=== PATIENT | male | born 1975 | race Caucasian/White ===

== ENCOUNTER 2016-06-09 06:25 | Observation (INO) | payer OTHER ==
[2016-06-09] MEDS ORDERED: SODIUM CHLORIDE 0.9% 1,000 ML IV STA (07:30)
[2016-06-09] MEDS ORDERED: ONDANSETRON 4 MG/2 ML VIAL IVP STA (07:30)
[2016-06-09] MEDS ORDERED: SODIUM CHLORIDE 0.9% 2,000 ML IV STA (07:30)
[2016-06-09 08:01] LABS: Basophils % (A) 0 %; CH 27.3; CHCM 33.3; Eosinophils # (A) 0.1 k/uL (0-0.7); Eosinophils % (A) 1 %; HCT 50.3 % (39.0-53.0); HDW 2.77; HGB 16.8 gm/dL (13.0-17.5); Luc # (Auto) 0.33; Luc % (Auto) 3; Lymphocytes # (A) 0.4 k/uL (1.0-4.8); Lymphocytes % (A) 3 %; MCH 27.5 pg (25.0-35.0); MCHC 33.5 g/dL (31.0-37.0); MCV 82.2 fL (80.0-100.0); Mean Platelet Volume 7.6; Monocytes # (A) 0.5 k/uL (0-1.0); Monocytes % (A) 4 %; Neutrophils % (A) 90 %; RBC 6.12 m/uL (4.30-5.90); RDW 13.8 % (11.5-15.5); WBC 12.2 k/uL (3.8-10.6); WBC (Perox) 12.61
[2016-06-09 08:06] LABS: ALT 43 U/L (21-72); AST 29 U/L (17-59); Alkaline Phosphatase 87 U/L (38-126); Amylase 55 U/L (30-110); Anion Gap 15 mmol/L; Blood Urea Nitrogen 23 mg/dL (9-20); Calcium 9.2 mg/dL (8.4-10.2); Carbon Dioxide 20 mmol/L (22-30); Chloride 108 mmol/L (98-107); Glucose 121 mg/dL (74-99); Non-African American GFR(MDRD) >60 (>60 ml/min/1.73 sqM); Potassium 5.1 mmol/L (3.5-5.1); Sodium 143 mmol/L (137-145); Total Bilirubin 1.5 mg/dL (0.2-1.3); Total Protein 7.4 g/dL (6.3-8.2)
--- NOTE | 2016-06-09 08:09 | XR ---
EXAMINATION TYPE: XR abdomen acute w cxr DATE OF EXAM ORDERED: 06/09/2016 8:01 AM HISTORY: Abd pain. COMPARISON: None. FINDINGS: The heart is enlarged. The lungs are clear. Pleural spaces are clear. Within the abdomen, the abdominal gas pattern is normal. There is no evidence of obstruction or free air. No unusual calcifications are seen. IMPRESSION: 1. CARDIOMEGALY. 2. NO ACUTE INTRA-ABDOMINAL ABNORMALITY.
--- NOTE | 2016-06-09 08:25 | ED ---
Nausea/Vomiting/Diarrhea HPI - General Chief complaint: Nausea/Vomiting/Diarrhea Stated complaint: Syncope Time Seen by Provider: 06/09/16 07:24 Source: patient Mode of arrival: EMS Limitations: no limitations - History of Present Illness Initial comments: This 40-year-old white male presents with the complaint of nausea vomiting diarrhea. He apparently had 10 episodes of vomiting and 2 episodes of diarrhea. The onset occurred last night at 11 PM. He feels fatigued but denies any actual fever. He will have occasional abdominal pain when he has diarrhea but he denies any current abdominal pain. He also had 4 syncopal episodes thus far. He denies any known sick contacts. No other complaints or modifying factors. - Related Data Allergies Allergy/AdvReac Type Severity Reaction Status Date / Time Iodine and Iodide Containing Allergy Rash/Hives Verified 06/09/16 06:42 Produc Penicillins Allergy Unknown Verified 06/09/16 06:42 Review of Systems ROS Statement: Those systems with pertinent positive or pertinent negative responses have been documented in the HPI. ROS Other: All systems not noted in ROS Statement are negative. Past Medical History Past Medical History: CVA/TIA Additional Past Medical History / Comment(s): BRAIN TUMOR History of Any Multi-Drug Resistant Organisms: None Reported Additional Past Surgical History / Comment(s): BRAIN SURGERY Past Psychological History: No Psychological Hx Reported Smoking Status: Never smoker Past Alcohol Use History: None Reported Past Drug Use History: None Reported General Exam - General Exam Comments Initial Comments: GENERAL: The patient is well nourished and well hydrated. VITAL SIGNS: Heart rate, blood pressure, respiratory rate reviewed as recorded in nurse's notes. EYES: Pupils are round and reactive. Extraocular movements are intact. No conjunctival / lid redness or swelling. ENT: No external evidence of injury, swelling, or ecchymosis. Airway is patent. Throat is clear. NECK: Nontender. No swelling or evidence of injury. No subcutaneous emphysema. Trachea is midline. No thyroid mass. HEART: Regular rate and rhythm. Good peripheral pulses. LUNGS/CHEST: Breath sounds clear and equal bilaterally. No rales, rhonchi, or wheezes. No ecchymosis, subcutaneous emphysema, or tenderness. ABDOMEN: Abdomen soft without tenderness. No palpable masses or organomegaly. No peritoneal signs. No abdominal wall swelling or ecchymosis. EXTREMITIES: No extremity tenderness. Normal muscle tone and function. No thoracolumbar tenderness. NEUROLOGIC: Sensation is grossly intact. Cranial nerve exam reveals face is symmetrical, tongue is midline, speech is clear. SKIN: No abrasions or ecchymosis is noted. No induration or masses noted. PSYCHIATRIC: Alert and oriented. Appropriate behavior and judgment. Limitations: no limitations Course Vital Signs 06/09/16 06:33 Temperature 97.1 F L Pulse Rate 110 H Respiratory 18 Rate Blood Pressure 181/86 O2 Sat by Pulse 93 L Oximetry Medical Decision Making - Medical Decision Making The patient was seen and examined. All diagnostics were reviewed. An IV was started and he was thoroughly hydrated. He also received some Zofran further nausea. EKG was completed and shows a sinus tachycardia with a heart rate of 101. There is no acute ST-T wave changes identified. The GA interval is 140, QRS duration is 84, and QTC intervals 435. The acute abdominal series did not show any acute processes. The laboratory does show a decreased CO2 consistent with dehydration. He has mild leukocytosis. Overall, it is felt as though he does have gastroenteritis with dehydration. He also had 4 syncopal episodes. It is felt that he benefit from admission. Case is discussed with Dr. Mercado and he is agreeable to admission. The patient is admitted to the general medical floor with telemetry. - Lab Data Result diagrams: 06/09/16 06:55 06/09/16 06:55 Lab Results 06/09/16 06/09/16 Range/Units 06:55 06:55 WBC 12.2 H (3.8-10.6) k/uL RBC 6.12 H (4.30-5.90) m/uL Hgb 16.8 (13.0-17.5) gm/dL Hct 50.3 (39.0-53.0) % MCV 82.2 (80.0-100.0) fL MCH 27.5 (25.0-35.0) pg MCHC 33.5 (31.0-37.0) g/dL RDW 13.8 (11.5-15.5) % Plt Count 311 (150-450) k/uL Neutrophils % 90 % Lymphocytes % 3 % Monocytes % 4 % Eosinophils % 1 % Basophils % 0 % Neutrophils # 11.0 H (1.3-7.7) k/uL Lymphocytes # 0.4 L (1.0-4.8) k/uL Monocytes # 0.5 (0-1.0) k/uL Eosinophils # 0.1 (0-0.7) k/uL Basophils # 0.0 (0-0.2) k/uL Sodium 143 (137-145) mmol/L Potassium 5.1 (3.5-5.1) mmol/L Chloride 108 H (98-107) mmol/L Carbon Dioxide 20 L (22-30) mmol/L Anion Gap 15 mmol/L BUN 23 H (9-20) mg/dL Creatinine 0.99 (0.66-1.25) mg/dL Est GFR (MDRD) Af Amer >60 (>60 ml/min/1.73 sqM) Est GFR (MDRD) Non-Af >60 (>60 ml/min/1.73 sqM) Glucose 121 H (74-99) mg/dL Calcium 9.2 (8.4-10.2) mg/dL Total Bilirubin 1.5 H (0.2-1.3) mg/dL AST 29 (17-59) U/L ALT 43 (21-72) U/L Alkaline Phosphatase 87 (38-126) U/L Total Protein 7.4 (6.3-8.2) g/dL Albumin 4.1 (3.5-5.0) g/dL Amylase 55 (30-110) U/L Lipase 174 (23-300) U/L Disposition Clinical Impression: Gastroenteritis, Dehydration, Abdominal pain, Syncope, Nausea vomiting and diarrhea Disposition: ADMITTED IP TO THIS [facility] Condition: Fair Time of Disposition: : Decision Date: 06/09/16 Decision Time: :
[2016-06-09] MEDS ORDERED: ONDANSETRON 4 MG/2 ML VIAL IVP PRN (09:29)
[2016-06-09] MEDS ORDERED: NALOXONE 0.4 MG/ML 1 ML VIAL IV PRN (09:29)
[2016-06-09 09:32] LABS: Appearance,Urine Cloudy (Clear); Bilirubin,Urine 1+ (Negative); Glucose,Urine (UA) Negative (Negative); Ketones,Urine Negative (Negative); Leukocyte Esterase,Urine Negative (Negative); Mucus,Urine Many /hpf; Nitrite,Urine Negative (Negative); PH, Urine 5.5 (5.0-8.0); Particle Count 12770; Protein,Urine 1+ (Negative); RBC,Urine 1 /hpf (0-5); Specific Gravity,Urine 1.027 (1.001-1.035); Squamous Epithelial Cell,Urine <1 /hpf (0-4); UA Billing (MACRO vs. MICRO) MICRO; Urobilinogen,Urine <2.0 mg/dL (<2.0); WBC,Urine 5 /hpf (0-5)
[2016-06-09] MEDS: PANTOPRAZOLE 40 MG/10 ML VIAL IV SCH (10:35)
[2016-06-09 10:50] VITALS: BMI 42.5
--- NOTE | 2016-06-09 12:35 | P.HPIM ---
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 with a previous medical history significant for hypertension and hypertensive cardio vascular disease, history of ALLERGIC rhinitis, history of brain tumor that was diagnosed back in 1981 when he was 6-year-old at that time he underwent craniotomy by neurosurgery at [facility], patient stated that he was in his usual state of health about yesterday when he ate 2 baked potatoes as well as 3 fish patties that had lobe of increased on it and he went to bed and woke up at around 11:00 in the evening with abdominal pain associated with nausea and not feeling well and he went back to bed at that time. Woke up at around 3: 00 in the morning and he was having severe diarrhea and at the same time he vomited about 6 times and he had a syncopal episode, subsequently the patient the went back to bed at wake up at around 5:00 in the morning had another syncopal episode, his mom cold 911 and the patient was brought into the emergency department at [facility] where he had another syncopal episode his blood pressure was quite low and the patient appeared quite dehydrated and the patient was given 2 L of normal saline and he was at admitted to the hospital for evaluation of possible gastric try to see had an chest x-ray as well as abdominal x-ray that showed cardiomegaly without acute abdominal process, patient was admitted to the hospital placed on a monitor and cardiology consultation was obtained for evaluation of his cardiomegaly. Review of Systems Constitutional: Reports anorexia, Reports weakness, Denies lethargy, Denies malaise, Denies weight gain, Denies weight loss Eyes: denies blurred vision, denies bulging eye, denies decreased vision Ears: deny: decreased hearing Ears, nose, mouth and throat: Denies dysphagia, Denies neck lump, Denies sore throat, Denies vertigo Cardiovascular: Reports high blood pressure, Reports syncope, Denies chest pain , Denies decreased exercise tolerance, Denies dyspnea on exertion, Denies rapid heart beat, Denies shortness of breath Respiratory: Denies congestion, Denies cough, Denies cough with sputum, Denies home oxygen, Denies sleep apnea, Denies snoring, Denies wheezing Gastrointestinal: Reports abdominal pain, Reports bloating, Reports change in bowel habits, Reports diarrhea, Reports dyspepsia, Reports heartburn, Reports indigestion, Reports loss of appetite, Reports nausea, Reports vomiting, Denies jaundice Genitourinary: Denies dysuria, Denies nocturia, Denies polyuria Musculoskeletal: Reports gait dysfunction, Reports muscle weakness, Denies myalgias Musculoskeletal: absent: ankle pain, ankle stiffness, ankle swelling, elbow pain , elbow stiffness, elbow swelling, foot pain, foot stiffness, foot swelling, hand pain, hand stiffness, hand swelling, hip pain, hip stiffness, hip swelling , knee pain, knee stiffness, knee swelling, shoulder pain, shoulder stiffness, shoulder swelling, wrist pain, wrist stiffness, wrist swelling Integumentary: Denies pruritus, Denies rash Neurological: Reports balance difficulties, Reports gait dysfunction, Reports motor disturbance, Reports paralysis, Reports spasticity, Denies numbness, Denies weakness Psychiatric: Denies anxiety, Denies depression Endocrine: Denies fatigue, Denies weight change Past Medical History Past Medical History: CVA/TIA, Hyperlipidemia, Hypertension Additional Past Medical History / Comment(s): BRAIN TUMOR with surgery, 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 total of 5 ot 6 surgeries related to this per patient. 25 days of cobalt and nuclear crystal treatment for brain tumor as teenager. Additional Past Anesthesia/Blood Transfusion Reaction / Comment(s): no previous blood transfusions. Past Psychological History: No Psychological Hx Reported Smoking Status: Never smoker Past Alcohol Use History: None Reported Past Drug Use History: None Reported - Past Family History Mother Family Medical History: Cancer, Diabetes Mellitus (Mother 7-year-old has history of diabetes but he started to, hypertension and also breast cancer.) Additional Family Medical History / Comment(s): breast CA, cysy removal. Father Family Medical History: AFIB, Cancer (Father is 75-year-old had history of renal failure, mitral valve replacement, aortic valve replacement, atrial fibrillation, permanent pacemaker, CVA, colon cancer, De La Torre granulomatosis), CVA/TIA, Renal Disease Additional Family Medical History / Comment(s): heart surgery. Brother(s) Family Medical History: Neurologic Disorder (Patient has 2 brothers one of them with multiple sclerosis.) Additional Family Medical History / Comment(s): MS Medications and Allergies Home Medications Medication Instructions Recorded Confirmed Type Cephalexin [Keflex] 1,000 mg PO DAILY 06/09/16 06/09/16 History Lisinopril [Prinivil] 20 mg PO DAILY 06/09/16 06/09/16 History Loratadine [Claritin] 10 mg PO DAILY 06/09/16 06/09/16 History Allergies Allergy/AdvReac Type Severity Reaction Status Date / Time Iodine and Iodide Containing Allergy Rash/Hives Verified 06/09/16 11:42 Produc Penicillins Allergy Unknown Verified 06/09/16 11:42 Physical Exam Vitals: Vital Signs Pulse Resp BP Pulse Ox 06/09/16 10:50 16 06/09/16 09:47 92 16 121/80 97 Intake and Output 06/08/16 06/09/16 06/09/16 22:59 06:59 14:59 Other: Voiding Method Urinal Weight 154.221 kg Patient Weight 06/10/16 06:59 Weight 154.221 kg - Constitutional General appearance: cooperative, mild distress, obese - EENT Eyes: anicteric sclerae, EOMI, PERRLA, no ptosis, no scleral icterus, normal appearance ENT: normal oropharynx, no thrush, no tonsillar exudates Ears: bilateral: normal - Neck Neck: no lymphadenopathy, normal ROM, no rigidity, no stridor, no thyromegaly Carotids: bilateral: upstroke normal Thyroid: bilateral: normal size - Respiratory Respiratory: bilateral: diminished, negative: dullness, rales, rhonchi, wheezing , prolonged expiration, prolonged inspiration - Cardiovascular Rhythm: regular Heart sounds: normal: S1, S2 Abnormal Heart Sounds: no rub, no S3 Gallop, no S4 Gallop, no click - Gastrointestinal General gastrointestinal: normal bowel sounds, soft, no splenomegaly, no tenderness, no umbilical hernia, no ventral hernia - Integumentary Integumentary: decreased turgor - Neurologic Neurologic: focal deficits - Musculoskeletal Musculoskeletal: left sided weakness - Psychiatric Psychiatric: A&O x's 3, appropriate affect, intact judgment & insight Results CBC & Chem 7: 06/09/16 06:55 06/09/16 06:55 Thrombosis Risk Factor Assmnt - DVT/VTE Prophylaxis DVT/VTE Prophylaxis: Mechanical Prophylaxis ordered - Choose All That Apply Any of the Below Risk Factors Present?: Yes Each Factor Represents 1 point: Age 41-60 years Thrombosis Risk Factor Assessment Total Risk Factor Score: 1 Thrombosis Risk Factor Assessment Level: Low Risk Assessment and Plan Plan: Assessment and plan: 1. Acute gastroenteritis. Continue IV fluid resuscitation, continue conservative management with Zofran and Protonix. 2. Syncope most likely vasovagal due to intravascular depletion, discontinue lisinopril, continue IV fluid resuscitation, recheck the patient in the next 24 hours, check orthostatics. 3. Cardiac megaly. Obtain echocardiogram, obtain cardiology consultation. Place the patient on monitor. 4. Hypertension and hypertensive cardio vascular disease. Currently hypotensive we will hold off lisinopril for the next 24 hours. 5. History of brain tumor in the past status post craniotomy with multiple surgical intervention. Stable at this time. With left-sided hemiplegia. 6. ALLERGIC rhinitis. Hold off loratadine for now. 7. DVT prophylaxis. The patient was placed on bilateral knee-high AYAD hose. 8. GI prophylaxis. Continue Protonix 40 mg IV push every 24 hours. 9. Patient is full code. 10. Prognosis is fair.
[2016-06-09] MEDS: ACETAMINOPHEN TAB 325 MG TAB PO PRN (19:02)
[2016-06-10] MEDS: ACETAMINOPHEN TAB 325 MG TAB PO PRN ×2 (00:19→16:00)
[2016-06-10 09:49] LABS: Aty Lym Flag Slight; CH 27.3; CHCM 33.8; HCT 42.7 % (39.0-53.0); HDW 2.95; HGB 14.2 gm/dL (13.0-17.5); MCH 26.9 pg (25.0-35.0); MCHC 33.2 g/dL (31.0-37.0); MCV 81.2 fL (80.0-100.0); Mean Platelet Volume 8.1; RBC 5.26 m/uL (4.30-5.90); RDW 13.9 % (11.5-15.5); WBC 7.3 k/uL (3.8-10.6); WBC (Perox) 7.29
[2016-06-10] MEDS: PANTOPRAZOLE 40 MG/10 ML VIAL IV SCH (10:08)
[2016-06-10] MEDS: ENOXAPARIN 40 MG/0.4 ML SYRINGE SQ SCH (10:08)
[2016-06-10 10:12] LABS: ALT 38 U/L (21-72); AST 24 U/L (17-59); Alkaline Phosphatase 53 U/L (38-126); Anion Gap 4 mmol/L; Blood Urea Nitrogen 14 mg/dL (9-20); Calcium 8.6 mg/dL (8.4-10.2); Carbon Dioxide 22 mmol/L (22-30); Chloride 111 mmol/L (98-107); Glucose 94 mg/dL (74-99); Magnesium 1.9 mg/dL (1.6-2.3); Non-African American GFR(MDRD) >60 (>60 ml/min/1.73 sqM); Potassium 4.8 mmol/L (3.5-5.1); Sodium 137 mmol/L (137-145); Total Bilirubin 1.4 mg/dL (0.2-1.3)
[2016-06-10 10:38] LABS: Add Differential Manual Differential
[2016-06-10 10:40] LABS: Manual Review Performed; Nucleated Red Blood Cells 0 /100 WBC (0-0); Total Cells Counted 100
--- NOTE | 2016-06-10 14:33 | P.PN ---
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 with a previous medical history significant for hypertension and hypertensive cardio vascular disease, history of ALLERGIC rhinitis, history of brain tumor that was diagnosed back in 1981 when he was 6-year-old at that time he underwent craniotomy by neurosurgery at [facility], patient stated that he was in his usual state of health about yesterday when he ate 2 baked potatoes as well as 3 fish patties that had lobe of increased on it and he went to bed and woke up at around 11:00 in the evening with abdominal pain associated with nausea and not feeling well and he went back to bed at that time. Woke up at around 3: 00 in the morning and he was having severe diarrhea and at the same time he vomited about 6 times and he had a syncopal episode, subsequently the patient the went back to bed at wake up at around 5:00 in the morning had another syncopal episode, his mom cold 911 and the patient was brought into the emergency department at [facility] where he had another syncopal episode his blood pressure was quite low and the patient appeared quite dehydrated and the patient was given 2 L of normal saline and he was at admitted to the hospital for evaluation of possible gastric try to see had an chest x-ray as well as abdominal x-ray that showed cardiomegaly without acute abdominal process, patient was admitted to the hospital placed on a monitor and cardiology consultation was obtained for evaluation of his cardiomegaly. 06/10/2016: Patient is feeling better today he denies any chest pain, shortness breath, he denies any abdominal pain, nausea, vomiting, he is tolerating his liquid diet very well, he has no diarrhea, C. diff is negative. We will advance his diet to soft diet. Objective - Vital Signs Vital signs: Vital Signs Temp 97.5 F L 06/10/16 07:00 Pulse 85 06/10/16 07:00 Resp 16 06/10/16 07:00 BP 122/89 06/10/16 07:00 Pulse Ox 97 06/10/16 07:00 Intake & Output 06/09/16 06/10/16 06/10/16 18:59 06:59 18:59 Intake Total 665 700 Output Total 1200 Balance 665 -500 Weight 154.221 kg Intake: Oral 665 700 Output: Urine 1200 Other: Voiding Method Urinal Urinal # Voids 2 # Bowel Movements 1 - Exam - Constitutional General appearance: cooperative, mild distress, obese - EENT Eyes: anicteric sclerae, EOMI, PERRLA, no ptosis, no scleral icterus, normal appearance ENT: normal oropharynx, no thrush, no tonsillar exudates Ears: bilateral: normal - Neck Neck: no lymphadenopathy, normal ROM, no rigidity, no stridor, no thyromegaly Carotids: bilateral: upstroke normal Thyroid: bilateral: normal size - Respiratory Respiratory: bilateral: diminished, negative: dullness, rales, rhonchi, wheezing , prolonged expiration, prolonged inspiration - Cardiovascular Rhythm: regular Heart sounds: normal: S1, S2 Abnormal Heart Sounds: no rub, no S3 Gallop, no S4 Gallop, no click - Gastrointestinal General gastrointestinal: normal bowel sounds, soft, no splenomegaly, no tenderness, no umbilical hernia, no ventral hernia - Integumentary Integumentary: decreased turgor - Neurologic Neurologic: focal deficits - Musculoskeletal Musculoskeletal: left sided weakness - Psychiatric Psychiatric: A&O x's 3, appropriate affect, intact judgment & insight - Labs CBC & Chem 7: 06/10/16 09:09 06/10/16 09:09 Assessment and Plan Plan: Assessment and plan: 1. Acute gastroenteritis. Continue IV fluid resuscitation, continue conservative management with Zofran and Protonix. 2. Syncope most likely vasovagal due to intravascular depletion, discontinue lisinopril, continue IV fluid resuscitation, recheck the patient in the next 24 hours, check orthostatics. 3. Cardiac megaly. Obtain echocardiogram, obtain cardiology consultation. Place the patient on monitor. 4. Hypertension and hypertensive cardio vascular disease. Currently hypotensive we will hold off lisinopril for the next 24 hours. 5. History of brain tumor in the past status post craniotomy with multiple surgical intervention. Stable at this time. With left-sided hemiplegia. 6. ALLERGIC rhinitis. Hold off loratadine for now. 7. DVT prophylaxis. The patient was placed on bilateral knee-high AYAD hose. 8. GI prophylaxis. Continue Protonix 40 mg IV push every 24 hours. 9. Patient is full code. 10. Prognosis is fair. 11. Advance diet to soft diet, then advance as tolerated to regular diet but low-fat diet, and hopefully discharge home in the next 24 hours.
[2016-06-10 18:05] LABS: Glucose,Whole Blood 286 mg/dL (75-99)
[2016-06-10 23:08] VITALS: PULSE 80
[2016-06-11] MEDS: ENOXAPARIN 40 MG/0.4 ML SYRINGE SQ SCH (08:47)
[2016-06-11] MEDS: PANTOPRAZOLE 40 MG/10 ML VIAL IV SCH (08:47)
[2016-06-11 09:29] VITALS: BP 147/89; RESP 16; TEMP 96.8
[2016-06-11 09:52] LABS: ALT 36 U/L (21-72); AST 29 U/L (17-59); Alkaline Phosphatase 67 U/L (38-126); Anion Gap 11 mmol/L; Blood Urea Nitrogen 15 mg/dL (9-20); Calcium 8.9 mg/dL (8.4-10.2); Carbon Dioxide 21 mmol/L (22-30); Chloride 111 mmol/L (98-107); Glucose 96 mg/dL (74-99); Non-African American GFR(MDRD) >60 (>60 ml/min/1.73 sqM); Potassium 5.5 mmol/L (3.5-5.1); Sodium 143 mmol/L (137-145); Total Bilirubin 0.9 mg/dL (0.2-1.3); Total Protein 6.6 g/dL (6.3-8.2)
[2016-06-11 10:13] LABS: Basophils % (A) 0 %; CH 27.4; CHCM 34.1; Eosinophils # (A) 0.2 k/uL (0-0.7); Eosinophils % (A) 3 %; HCT 41.9 % (39.0-53.0); HDW 2.96; Luc # (Auto) 0.28; Luc % (Auto) 4; Lymphocytes # (A) 1.4 k/uL (1.0-4.8); Lymphocytes % (A) 20 %; MCHC 33.5 g/dL (31.0-37.0); MCV 80.7 fL (80.0-100.0); Mean Platelet Volume 8.2; Monocytes # (A) 0.4 k/uL (0-1.0); Monocytes % (A) 6 %; Neutrophils # (A) 4.8 k/uL (1.3-7.7); Neutrophils % (A) 67 %; RBC 5.19 m/uL (4.30-5.90); RDW 13.8 % (11.5-15.5); WBC 7.2 k/uL (3.8-10.6); WBC (Perox) 6.96
--- NOTE | 2016-06-11 12:17 | ECHOF ---
Referral Reason:syncope/cardiomegaly MEASUREMENTS -------- HEIGHT: 190.5 cm WEIGHT: 154.2 kg BP: 127/88 RVIDd: 2.5 cm (< 3.3) IVSd: 1.2 cm (0.6 - 1.1) LVIDd: 4.1 cm (3.9 - 5.3) LVPWd: 1.2 cm (0.6 - 1.1) IVSs: 1.7 cm LVIDs: 2.9 cm LVPWs: 1.7 cm LA Diam: 3.2 cm (2.7 - 3.8) LAESV Index (A-L): 16.93 ml/m Ao Diam: 3.6 cm (2.0 - 3.7) AV Cusp: 2.6 cm (1.5 - 2.6) MV EXCURSION: 16.312 mm (> 18.000) MV EF SLOPE: 55 mm/s (70 - 150) EPSS: 0.6 cm MV E Abdoulaye: 0.93 m/s MV DecT: 149 ms MV A Abdoulaye: 0.67 m/s MV E/A Ratio: 1.38 FINDINGS -------- Sinus rhythm. This was a technically difficult study with suboptimal views. The left ventricular size is normal. There is borderline concentric left ventricular hypertrophy. Overall left ventricular systolic function is normal with, an EF between 55 - 60 %. The right ventricle is normal in size and function. Normal LA size by volume 22+/-6 ml/m2. The right atrium is normal in size. 1.5mg of Definity was utilized for enhancement of images The aortic valve is trileaflet and appears structurally normal. Normal appearing mitral valve. No mitral regurgitation. The tricuspid valve was not well visualized. The pulmonic valve was not well visualized. The aortic root size is normal. Normal inferior vena cava with normal inspiratory collapse consistent with estimated right atrial pressure of 5 mmHg. There is no pericardial effusion. CONCLUSIONS -------- 1. Sinus rhythm. 2. The aortic root size is normal. 3. Normal inferior vena cava with normal inspiratory collapse consistent with estimated right atrial pressure of 5 mmHg. 4. There is no pericardial effusion. 5. This was a technically difficult study with suboptimal views. 6. There is borderline concentric left ventricular hypertrophy. 7. Normal LA size by volume 22+/-6 ml/m2. 8. 1.5mg of Definity was utilized for enhancement of images 9. The aortic valve is trileaflet and appears structurally normal. 10. Normal appearing mitral valve. 11. The tricuspid valve was not well visualized. 12. The pulmonic valve was not well visualized. FOREMAN OR SUPERVISOR AND OPERATOR: Mami Frias RDCS
--- NOTE | 2016-06-11 15:39 | P.DS ---
Providers Date of admission: 06/09/16 09:29 Expected date of discharge: 06/11/16 Attending physician: Sofia Mercado Primary [facility] physician[facility] Course: This is a 40-year-old male one of Dr. Stringer with a previous medical history significant for hypertension and hypertensive cardio vascular disease, history of ALLERGIC rhinitis, history of brain tumor that was diagnosed back in 1981 when he was 6-year-old at that time he underwent craniotomy by neurosurgery at [facility], patient stated that he was in his usual state of health about yesterday when he ate 2 baked potatoes as well as 3 fish patties that had lobe of increased on it and he went to bed and woke up at around 11:00 in the evening with abdominal pain associated with nausea and not feeling well and he went back to bed at that time. Woke up at around 3: 00 in the morning and he was having severe diarrhea and at the same time he vomited about 6 times and he had a syncopal episode, subsequently the patient the went back to bed at wake up at around 5:00 in the morning had another syncopal episode, his mom cold 911 and the patient was brought into the emergency department at [facility] where he had another syncopal episode his blood pressure was quite low and the patient appeared quite dehydrated and the patient was given 2 L of normal saline and he was at admitted to the hospital for evaluation of possible gastric try to see had an chest x-ray as well as abdominal x-ray that showed cardiomegaly without acute abdominal process, patient was admitted to the hospital placed on a monitor and cardiology consultation was obtained for evaluation of his cardiomegaly. 06/10/2016: Patient is feeling better today he denies any chest pain, shortness breath, he denies any abdominal pain, nausea, vomiting, he is tolerating his liquid diet very well, he has no diarrhea, C. diff is negative. We will advance his diet to soft diet. 06/11: Patient denies any continued nausea, vomiting, diarrhea. He ate today without difficulty. No syncopal episodes or lightheadedness. Patient will be discharged home today in stable condition. Echocardiogram reveals borderline concentric left ventricular hypertrophy, tricuspid and pulmonic valves are not well visualized, EF 55-60% Discharge diagnoses: 1. Acute gastroenteritis. 2. Syncope most likely vasovagal due to intravascular depletion 3. Cardiomegaly. 4. Hypertension and hypertensive cardio vascular disease. 5. History of brain tumor in the past status post craniotomy with multiple surgical intervention. Stable at this time. With left-sided hemiplegia. 6. ALLERGIC rhinitis. Impression and plan of care have been directed as dictated by the signing physician. Yolanda Macias nurse practitioner acting as scribe for signing physician. CC: Dr. Dat Stringer Patient Condition at Discharge: Good Plan - Discharge Summary New Discharge Prescriptions: metroNIDAZOLE [Flagyl] 500 mg PO TID #21 tab Discharge Medication List Lisinopril [Prinivil] 20 mg PO DAILY 06/09/16 [History] Loratadine [Claritin] 10 mg PO DAILY 06/09/16 [History] metroNIDAZOLE [Flagyl] 500 mg PO TID #21 tab 06/11/16 [Rx] Follow up Appointment(s)/Referral(s): Dat Stringer DO [Primary Care Provider] - 1 Week (Office unavailable at this time, please call to schedule appointment. ) Patient Instructions/Handouts: Gastroenteritis (DC) Activity/Diet/Wound Care/Special Instructions: Cardiac diet. Discharge Disposition: HOME SELF-CARE
== END 2016-06-11 12:36 | disposition home or self-care (01) ==
LOC: EC 06:25 → INTOOBSV 09:29 → 4MS4W 09:29
PROVIDERS: ADMIT Internal Medicine; ATTEND Internal Medicine
DX: K52.9 Noninfective gastroenteritis and colitis, unspecified (principal); R55 Syncope and collapse; I51.7 Cardiomegaly; I95.9 Hypotension, unspecified; I11.9 Hypertensive heart disease without heart failure; Z86.011 Personal history of benign neoplasm of the brain; G81.94 Hemiplegia, unspecified affecting left nondominant side; J30.9 Allergic rhinitis, unspecified; E78.5 Hyperlipidemia, unspecified; E86.0 Dehydration; Z88.0 Allergy status to penicillin; Z88.3 Allergy status to other anti-infective agents; Z86.73 Personal history of transient ischemic attack (TIA), and cerebral infarction without residual deficits; Z82.49 Family history of ischemic heart disease and other diseases of the circulatory system; Z83.3 Family history of diabetes mellitus; Z82.0 Family history of epilepsy and other diseases of the nervous system; Z79.899 Other long term (current) drug therapy; Z88.1 Allergy status to other antibiotic agents; Z80.0 Family history of malignant neoplasm of digestive organs; Z80.3 Family history of malignant neoplasm of breast; Z82.3 Family history of stroke
CPT/HCPCS: 96361; 96374; 99285; 36415; 93005; 80053 ×3; 82150; 83690; 83735 ×2; 85025 ×3; 81001; 87040; 87324; 74022; G0378 ×3; C8929; J2405; J1650 ×2; Q9957; C9113 ×3; 93306; 96372; 96375; 96376

== ENCOUNTER 2023-02-10 11:58 | Emergency (ER) | payer OTHER ==
[2023-02-10 12:19] VITALS: RESP 18
--- NOTE | 2023-02-10 13:38 | ED ---
Back Pain HPI - General Source: patient, RN notes reviewed Limitations: no limitations <Janice Maldonado - Last Filed: 02/10/23 13:36> <Nancy Wiseman - Last Filed: 02/10/23 17:47> - General Chief Complaint: Back Pain/Injury Stated Complaint: Back Pain Time Seen by Provider: 02/10/23 13:36 - History of Present Illness Initial Comments: patient is a 47-year-old male presenting to the ER with chief complaint of right flank pain. Patient states the pain started this morning. Patient did have a fall last Saturday. Patient denies any fevers or chills. (Janice Maldonado) 47-year-old male with past history of brain tumor and left upper extremity contracture who presents to the emergency Department reporting right-sided flank pain. States that the pain started as sudden onset 1 hour prior to hospital arrival. Located on the right side of his flank. Reports to a fall last Saturday where he slipped in his garage on a piece of cardboard and fell backwards hitting the right side of his back on the door. He did not have any pain until today. No rash. Admits to dark urination but no hematuria. No fevers. Denies any changes in his bowel habits. No history of kidney stones. No other alleviating, precipitating or modifying factors (Nancy Wiseman) - Related Data Home Medications Medication Instructions Recorded Confirmed Loratadine [Claritin] 10 mg PO DAILY 06/09/16 06/09/16 lisinopriL [Prinivil] 20 mg PO DAILY 06/09/16 06/09/16 Previous Rx's Medication Instructions Recorded metroNIDAZOLE [Flagyl] 500 mg PO TID #21 tab 06/11/16 HYDROcodone/APAP 5-325MG [[place] 1 tab PO Q4HR PRN 3 Days #18 tab 02/10/23 5-325] Ketorolac [Toradol] 10 mg PO Q8HR #15 tab 02/10/23 Tamsulosin [Flomax] 0.4 mg PO DAILY #7 cap 02/10/23 Allergies Allergy/AdvReac Type Severity Reaction Status Date / Time Iodine and Iodide Containing Allergy Rash/Hives Verified 02/10/23 12:06 Produc Penicillins Allergy Unknown Verified 02/10/23 12:06 Review of Systems ROS Other: All systems not noted in ROS Statement are negative. <Janice Maldonado - Last Filed: 02/10/23 13:36> ROS Other: All systems not noted in ROS Statement are negative. <YurykleverNancy Yolanda - Last Filed: 02/10/23 17:47> ROS Statement: Those systems with pertinent positive or pertinent negative responses have been documented in the HPI. 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 total of 5 ot 6 surgeries related to this per patient. 25 days of cobalt and nuclear crystal treatment for brain tumor as teenager. Additional Past Anesthesia/Blood Transfusion Reaction / Comment(s): no previous blood transfusions. Past Psychological History: No Psychological Hx Reported Smoking Status: Never smoker Past Alcohol Use History: None Reported Past Drug Use History: None Reported - Past Family History Mother Family Medical History: Cancer, Diabetes Mellitus (Mother 7-year-old has history of diabetes but he started to, hypertension and also breast cancer.) Additional Family Medical History / Comment(s): breast CA, cysy removal. Father Family Medical History: AFIB, Cancer (Father is 75-year-old had history of renal failure, mitral valve replacement, aortic valve replacement, atrial fibrillation, permanent pacemaker, CVA, colon cancer, [place]re granulomatosis), CVA/TIA, Renal Disease Additional Family Medical History / Comment(s): heart surgery. Brother(s) Family Medical History: Neurologic Disorder (Patient has 2 brothers one of them with multiple sclerosis.) Additional Family Medical History / Comment(s): MS <Janice Maldoando - Last Filed: 02/10/23 13:36> General Exam Limitations: no limitations <Janice Maldonado - Last Filed: 02/10/23 13:36> General appearance: alert, in no apparent distress Head exam: Present: atraumatic, normocephalic, normal inspection Eye exam: Present: normal appearance, PERRL, EOMI. Absent: scleral icterus, conjunctival injection, periorbital swelling ENT exam: Present: normal exam, mucous membranes moist Neck exam: Present: normal inspection. Absent: tenderness, meningismus, lymphadenopathy Respiratory exam: Present: normal lung sounds bilaterally. Absent: respiratory distress, wheezes, rales, rhonchi, stridor Cardiovascular Exam: Present: regular rate, normal rhythm, normal heart sounds. Absent: systolic murmur, diastolic murmur, rubs, gallop, clicks GI/Abdominal exam: Present: soft, normal bowel sounds. Absent: distended, tenderness, guarding, rebound, rigid Extremities exam: Present: normal capillary refill, other (Contracture of the left upper extremity). Absent: tenderness, pedal edema, joint swelling, calf tenderness Back exam: Present: normal inspection Neurological exam: Present: alert, oriented X3, CN II-XII intact Psychiatric exam: Present: normal affect, normal mood Skin exam: Present: warm, dry, intact, normal color. Absent: rash <Nancy Wiseman - Last Filed: 02/10/23 17:47> - General Exam Comments Initial Comments: Visual Physical Exam Vital signs reviewed General: Well-appearing, nontoxic, no acute distress. Head: Normocephalic, atraumatic Eyes: PERRLA, EOMI ENT: Airway patent Chest: Nonlabored breathing Skin: No visual rash, normal skin tone Neuro: Alert and oriented 3 Musculoskeletal: No gross abnormalities (Janice Maldonado) Course Vital Signs 02/10/23 02/10/23 02/10/23 12:04 15:18 17:32 Temperature 98 F 97.9 F 98.9 F Pulse Rate 88 70 76 Respiratory 18 18 18 Rate Blood Pressure 141/93 145/89 142/80 O2 Sat by Pulse 99 99 99 Oximetry Medical Decision Making <Janice Maldonado - Last Filed: 02/10/23 13:36> <Nancy Wiseman - Last Filed: 02/10/23 17:47> - Medical Decision Making I performed the quick note portion of the exam. Electronically signed by Janice Maldonado PA-C (Janice Maldonado) Was pt. sent in by a medical professional or institution (MITALI Cleary, [employer] REPRESENTATIVE, urgent care, hospital, or alf...) When possible be specific @ -No Did you speak to anyone other than the patient for history (EMS, parent, family, police, friend...)? What history was obtained from this source @ -No Did you review nursing and triage notes (agree or disagree)? Why? @ -I reviewed and agree with nursing and triage notes Were old charts reviewed (outside hosp., previous admission, EMS record, old EKG, old radiological studies, urgent care reports/EKG's, alf records)? Report findings @ -No old charts were reviewed Differential Diagnosis (chest pain, altered mental status, abdominal pain women, abdominal pain men, vaginal bleeding, weakness, fever, dyspnea, syncope, headache, dizziness, GI bleed, back pain, seizure, CVA, palpatations, mental health, musculoskeletal)? @ -Differential Back Pain: Strain, zoster, cauda equina syndrome, epidural abscess, vertebral osteomyelitis, discitis, fracture, subluxation, disc herniation, DJD, spinal stenosis, dissection, AAA, pancreatitis, peptic ulcer disease, pyelonephritis, kidney stone, this is not meant to be an all-inclusive list. EKG interpreted by me (3pts min.). @ -Not done X-rays interpreted by me (1pt min.). @ -Yes and demonstrates no acute process CT interpreted by me (1pt min.). @ -Yes and demonstrates a right-sided ureteral stone with hydronephrosis U/S interpreted by me (1pt. min.). @ -None done What testing was considered but not performed or refused? (CT, X-rays, U/S, labs)? Why? @ -None What meds were considered but not given or refused? Why? @ -Pain medications were offered however patient refused Did you discuss the management of the patient with other professionals (professionals i.e. , PA, [employer] REPRESENTATIVE, lab, RT, psych nurse, manager social media, business reporter, teacher, account officer, case packer and sealer)? Give summary @ -No Was smoking cessation discussed for >3mins.? @ -No Was critical care preformed (if so, how long)? @ -No Were there social determinants of health that impacted care today? How? (Homelessness, low income, unemployed, alcoholism, drug addiction, transportation, low edu. Level, literacy, decrease access to med. care, detention, rehab)? @ -No Was there de-escalation of care discussed even if they declined (Discuss DNR or withdrawal of care, Hospice)? DNR status @ -No What co-morbidities impacted this encounter? (DM, HTN, Smoking, COPD, CAD, Cancer, CVA, ARF, Chemo, Hep., AIDS, mental health diagnosis, sleep apnea, morbid obesity)? @ -None Was patient admitted / discharged? Hospital course, mention meds given and route, prescriptions, significant lab abnormalities, going to OR and other pertinent info. @ -Discharged. Upon arrival patient was placed into room 29. Thorough history and physical exam was performed. X-ray and urinalysis have been ordered in the waiting room. Urinalysis does demonstrate hematuria. Because of the patient's reported symptoms I did recommend CT to rule out kidney stone. Patient was agreeable to this. CT was performed and demonstrates a 4.5 mm right-sided proximal ureteral stone with associated hydronephrosis. Patient's pain is well- controlled at this time. He does refuse pain medications. I did discuss the diagnosis, differential and treatment options. At this time the patient feels comfortable with discharge home. He will be prescribed [place] and Toradol to alternate for pain control. I will also prescribed him Flomax. He is to drink plenty of fluids. Strain his urine. Follow up with his primary care doctor and return should he have any new or worsening symptoms. Patient agreeable to plan and was discharged in stable condition Undiagnosed new problem with uncertain prognosis? @ -No Drug Therapy requiring intensive monitoring for toxicity (Heparin, Nitro, Insulin, Cardizem)? @ -No Were any procedures done? @ -No Diagnosis/symptom? @ -Acute right flank pain, acute right ureteral stone, mild hydronephrosis, recent fall Acute, or Chronic, or Acute on Chronic? @ -Acute Uncomplicated (without systemic symptoms) or Complicated (systemic symptoms)? @ -Uncomplicated Side effects of treatment? @ -No Exacerbation, Progression, or Severe Exacerbation? @ -No Poses a threat to life or bodily function? How? (Chest pain, USA, SC, pneumonia, PE, COPD, DKA, ARF, appy, cholecystitis, CVA, Diverticulitis, Homicidal, Suicidal, threat to staff... and all critical care pts) @ -No (Nancy Wiseman) - Lab Data Lab Results 02/10/23 Range/Units 13:44 Urine Color Red Urine Appearance Cloudy (Clear) Urine pH 5.5 (5.0-8.0) Ur Specific [place] 1.023 (1.001-1.035) Urine Protein 1+ H (Negative) Urine Glucose (UA) Negative (Negative) Urine Ketones Negative (Negative) Urine Blood Large H (Negative) Urine Nitrite Negative (Negative) Urine Bilirubin Negative (Negative) Urine Urobilinogen <2.0 (<2.0) mg/dL Ur Leukocyte Esterase Small H (Negative) Urine RBC >182 H (0-5) /hpf Urine WBC 9 H (0-5) /hpf Urine Mucus Moderate H (None) /hpf Disposition <Janice Maldonado - Last Filed: 02/10/23 13:36> Is patient prescribed a controlled substance at d/c from ED?: Yes When asked, does pt state using other controlled substances?: No If prescribed controlled substance>3 days was MAPS reviewed?: Prescribed <3 Days If opioid is for acute pain is fill amount 7 days or less?: Yes Time of Disposition: 17:28 <Nancy Wiseman - Last Filed: 02/10/23 17:47> Clinical Impression: Kidney stone on right side, Hydronephrosis, Flank pain, Hematuria Disposition: HOME SELF-CARE Condition: Stable Instructions (If sedation given, give patient instructions): Kidney Stones (ED) Additional Instructions: Alternate taking the pain medications. I recommend you take the Toradol first. If you have continued pain, take the [place]. I recommend alternating them every 4 hours of possible. Strain all urine. Increase fluid intake. Take the Flomax daily. Return to the ER should you have uncontrolled pain, stop urinating or develop a fever Prescriptions: Tamsulosin [Flomax] 0.4 mg PO DAILY #7 cap HYDROcodone/APAP 5-325MG [[place] 5-325] 1 tab PO Q4HR PRN 3 Days #18 tab PRN Reason: Pain Ketorolac [Toradol] 10 mg PO Q8HR #15 tab Referrals: Dat Stringer DO [Primary Care Provider] - 1-2 days
--- NOTE | 2023-02-10 14:01 | XR ---
EXAMINATION TYPE: XR chest 2V DATE OF EXAM: 02/10/2023 1:58 PM CLINICAL INDICATION:Male, 47 years old with history of pain; [facility] COMPARISON: None TECHNIQUE: XR chest 2V Frontal and lateral views of the chest. FINDINGS: Lungs/Pleura: There is no evidence of pleural effusion, focal consolidation, or pneumothorax. Pulmonary vascularity: Unremarkable. Heart/mediastinum: Cardiomediastinal silhouette is unremarkable. Musculoskeletal: No acute osseous pathology. IMPRESSION: No acute cardiopulmonary disease/process.
--- NOTE | 2023-02-10 14:02 | XR ---
EXAMINATION TYPE: XR KUB DATE OF EXAM: 02/10/2023 1:58 PM CLINICAL INDICATION:Male, 47 years old with history of pain; [facility] COMPARISON: None. TECHNIQUE: One radiographic view of the abdomen was obtained. FINDINGS: The bowel gas pattern is nonspecific without dilated loops of small or large bowel. There i s no evidence for organomegaly or pneumoperitoneum. The osseous structures are intact. No abnormal calcifications are present. Fecal material and gas are demonstrated throughout the colon and rectum. IMPRESSION: Nonspecific bowel gas pattern without radiographic evidence for acute process.
[2023-02-10 14:06] LABS: Appearance,Urine Cloudy (Clear); Bilirubin,Urine Negative (Negative); Blood,Urine Large (Negative); Color,Urine Red; Glucose,Urine (UA) Negative (Negative); Ketones,Urine Negative (Negative); Leukocyte Esterase,Urine Small (Negative); Mucus,Urine Moderate /hpf; Nitrite,Urine Negative (Negative); PH, Urine 5.5 (5.0-8.0); Protein,Urine 1+ (Negative); RBC,Urine >182 /hpf (0-5); Specific Gravity,Urine 1.023 (1.001-1.035); Urobilinogen,Urine <2.0 mg/dL (<2.0); WBC,Urine 9 /hpf (0-5)
--- NOTE | 2023-02-10 17:09 | CT ---
EXAMINATION TYPE: CT abdomen pelvis wo con CT DLP: 2865 mGycm, Automated exposure control for dose reduction was used. DATE OF EXAM: 02/10/2023 3:36 PM COMPARISON: None. CLINICAL INDICATION:Male, 47 years old with history of flank pain, hematuria; flank pain, hematuria TECHNIQUE: Axial CT of the abdomen and pelvis without contrast, renal stone protocol. Sagittal and c oronal reformats were created on a separate workstation. Contrast used: mL of , (none if empty) Oral contrast used: without Oral Contrast (none if empty) FINDINGS: Noncontrast exam protocol for urinary calculi. Exam is otherwise limited by lack of contrast. LOWER CHEST: Mild bibasilar atelectasis. No pleural or pericardial effusion. Heart is not enlarged. S omewhat prominent pericardial fat. ABDOMEN LIVER: Unremarkable GALLBLADDER AND BILE DUCTS: Gallbladder is mostly contracted. No distention of the biliary tree is se en. PANCREAS: Fatty infiltration of the pancreas. No clear-cut adjacent inflammation but the margins are questionably slightly ill-defined. SPLEEN: Scattered calcified granulomas. ADRENAL GLANDS: Unremarkable. KIDNEYS AND URETERS: Left kidney and ureter unremarkable. Right kidney shows no intrarenal calculi. T here is a 4.5 mm calculus in the proximal right ureter at the L1-L2 level with associated mild to mod erate hydronephrosis and slight perinephric stranding. PELVIS BLADDER: Incompletely distended but grossly unremarkable. REPRODUCTIVE: Unremarkable. ABDOMEN & PELVIS STOMACH AND BOWEL: Stomach and small bowel are nondistended, no evidence of obstruction. Appendix not seen with certainty, however no inflammatory process is seen in the pericecal region. Scattered smal l colonic diverticula are suggested. Some stool throughout the colon without focal inflammatory proce ss seen. PERITONEUM/RETROPERITONEUM: No evidence of pneumoperitoneum or free fluid. Mild kavon mesentery appea blaire in the abdomen with several nonenlarged nodes. VASCULATURE: No evidence of aortic aneurysm. Minimal atherosclerotic calcification. MUSCULOSKELETAL: No acute osseous abnormalities. Mild degenerative changes of the spine. LYMPH NODES: No gross evidence for lymphadenopathy. SOFT TISSUE/ABDOMINAL WALL: Moderate size fat-containing bilateral inguinal hernias. Tiny fat-contain ing umbilical hernia. IMPRESSION: 1. A 4.5 mm calculus in the proximal right ureter, causing mild/moderate right-sided hydronephrosis. 2. Mild kavon mesentery appearance in the abdomen. Differential considerations are broad, but includ e: mesenteric panniculitis, idiopathic, cirrhosis, sequela of adjacent inflammation (including append icitis, IBD/Crohn's disease, pancreatitis), mesenteric venous thrombosis, rarely neoplasms (such as l ymphoma or infiltration by GI adenocarcinoma). 3. Fatty infiltration of the pancreas, with questionable slight ill-definition of the margins. Mild pancreatitis cannot be fully excluded, please correlate clinically.
[2023-02-10 17:48] VITALS: BP 142/80; PULSE 76; TEMP 98.9
== END 2023-02-10 17:34 | disposition home or self-care (01) ==
LOC: EC 11:58
DX: N13.2 Hydronephrosis with renal and ureteral calculous obstruction (principal); I10 Essential (primary) hypertension; Z79.899 Other long term (current) drug therapy; Z88.0 Allergy status to penicillin; Z91.09 Other allergy status, other than to drugs and biological substances; Z86.73 Personal history of transient ischemic attack (TIA), and cerebral infarction without residual deficits
CPT/HCPCS: 71046; 74018; 74176; 81001; 99284

== ENCOUNTER 2024-08-02 03:34 | Emergency (ER) | payer OTHER ==
--- NOTE | 2024-08-02 05:40 | ED ---
General Adult HPI <Darius Mcdermott Shun - Last Filed: 08/02/24 08:03> - General Source: patient Mode of arrival: ambulatory Limitations: no limitations <Tonie Hall - Last Filed: 08/02/24 19:00> - General Chief complaint: Abdominal Pain Stated complaint: Abd pain Time Seen by Provider: 08/02/24 04:54 - History of Present Illness Initial comments: Patient is a 48-year-old male past medical history of a brain tumor presenting today for abdominal pain. Patient states he woke up this morning with right sided abdominal pain. He attempted to have bowel movement was able to pass a small amount of hard stool but this did not relieve his pain so he presented to the ER. He describes the pain as dull, rates it is a 7 out of 10 and is located on his right side. No pain medications prior to arrival. He denies associated nausea or vomiting. Last BM was about 5 days ago. No black or bloody stools. No fevers or chills. No chest pain or shortness of breath. No dysuria or hematuria. He denies radiation of pain to his testicles or testicular swelling. His brother does note that the patient has been eating less recently in an attempt to lose weight. He also states the patient had a history of a kidney stone about 2 years ago. Patient states pain has been improving since arrival to the ER (Tonie Hall) - Related Data Home Medications Medication Instructions Recorded Confirmed Loratadine [Claritin] 10 mg PO DAILY 06/09/16 06/09/16 lisinopriL [Prinivil] 20 mg PO DAILY 06/09/16 06/09/16 Previous Rx's Medication Instructions Recorded metroNIDAZOLE [Flagyl] 500 mg PO TID #21 tab 06/11/16 HYDROcodone/APAP 5-325MG [[place] 1 tab PO Q4HR PRN 3 Days #18 tab 02/10/23 5-325] Ketorolac [Toradol] 10 mg PO Q8HR #15 tab 02/10/23 Tamsulosin [Flomax] 0.4 mg PO DAILY #7 cap 02/10/23 Allergies Allergy/AdvReac Type Severity Reaction Status Date / Time Iodine and Iodide Containing Allergy Rash/Hives Verified 08/02/24 03:38 Produc Penicillins Allergy Unknown Verified 08/02/24 03:38 Review of Systems ROS Other: All systems not noted in ROS Statement are negative. <Darius Mcdermott - Last Filed: 08/02/24 08:03> ROS Other: All systems not noted in ROS Statement are negative. <Tonie Hall - Last Filed: 08/02/24 19:00> ROS Statement: Those systems with pertinent positive or pertinent negative responses have been documented in the HPI. 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 total of 5 ot 6 surgeries related to this per patient. 25 days of cobalt and nuclear crystal treatment for brain tumor as teenager. Additional Past Anesthesia/Blood Transfusion Reaction / Comment(s): no previous blood transfusions. Past Psychological History: No Psychological Hx Reported Smoking Status: Never smoker Past Alcohol Use History: None Reported Past Drug Use History: None Reported - Past Family History Mother Family Medical History: Cancer, Diabetes Mellitus (Mother 7-year-old has history of diabetes but he started to, hypertension and also breast cancer.) Additional Family Medical History / Comment(s): breast CA, cysy removal. Father Family Medical History: AFIB, Cancer (Father is 75-year-old had history of renal failure, mitral valve replacement, aortic valve replacement, atrial fibrillation, permanent pacemaker, CVA, colon cancer, De [place] Torre granulomatosis), CVA/TIA, Renal Disease Additional Family Medical History / Comment(s): heart surgery. Brother(s) Family Medical History: Neurologic Disorder (Patient has 2 brothers one of them with multiple sclerosis.) Additional Family Medical History / Comment(s): MS <Tonie Hall - Last Filed: 08/02/24 19:00> General Exam Limitations: no limitations <Tonie Hall - Last Filed: 08/02/24 19:00> - General Exam Comments Initial Comments: PE: CONSTITUTIONAL: No apparent distress, well appearing SKIN: Warm, dry, no jaundice, hives or petechiae EYES: Pupils are equally round, extraocular movements intact without nystagmus, clear conjunctiva, non-icteric sclera HENT: Normocephalic, atraumatic, moist mucus membranes, oropharynx clear without exudates NECK: , Full range of motion, normal appearance PULMONARY: Clear to auscultation without wheezes, rhonchi, or rales, normal excursion, no accessory muscle use and no stridor CARDIOVASCULAR: Regular rate, rhythm, normal S1 and S2. No appreciated murmurs, rubs or gallops. Strong radial pulses with intact distal perfusion. No lower extremity edema GASTROINTESTINAL: Soft, active bowel sounds throughout, non-tender, non-di stended, no palpable masses, no rebound or guarding. No hepatosplenomegaly, no CVA tenderness GENITOURINARY: MUSCULOSKELETAL: Extremities have no gross deformity, no edema, redness, or swelling. NEUROLOGIC:_a/o x 3, GCS 15, normal mentation and speech. Moves all extremities x 4 without motor or sensory deficit PSYCHIATRIC:_normal mood and affect, thought process is clear and linear (Tonie Hall) Course Vital Signs 08/02/24 08/02/24 08/02/24 03:35 06:18 08:44 Temperature 97.4 F L 97.6 F 98 F Pulse Rate 69 75 78 Respiratory 18 20 16 Rate Blood Pressure 138/93 145/97 128/78 O2 Sat by Pulse 96 96 98 Oximetry Medical Decision Making - Lab Data Result diagrams: 08/02/24 04:13 08/02/24 04:13 <Darius Mcdermott - Last Filed: 08/02/24 08:03> - Lab Data Result diagrams: 08/02/24 04:13 08/02/24 04:13 <Tonie Hall - Last Filed: 08/02/24 19:00> - Medical Decision Making Patient care signed out to me by previous shift physician, Dr. Hall. Briefly, patient is a 48-year-old male presents to the emergency department with abdominal pain. Vital signs labs reviewed. Vital signs are stable. Labs completed showing findings within acceptable limits. Urine suspicious for inflammatory process. Previous microbiology results reviewed showing no positive culture results. Plan at signout was to follow-up with pending CT imaging. CT revealed obstructing nephrolithiasis. No other acute processes noted. Patient evaluated bedside at 8:03 AM states that he is asymptomatic. Likely pat ient had passed kidney stones. Patient discharged advised follow-up with urologist. (Darius Mcdermott) Was pt. sent in by a medical professional or institution ([facility] Cleary, [employer], urgent care, hospital, or correction...) When possible be specific @ -[No] Did you speak to anyone other than the patient for history (EMS, parent, family, police, friend...)? What history was obtained from this source @ -Spoke to patient's brother who states patient has had a history of prior kidn ey stone Did you review nursing and triage notes (agree or disagree)? Why? @ -[I reviewed and agree with nursing and triage notes] Were old charts reviewed (outside hosp., previous admission, EMS record, old EKG, old radiological studies, urgent care reports/EKG's, correction records)? Report findings @ -[Medical records reviewed]Patient had a CT abdomen pelvis performed on 02/10/2023, that showed a 4.5 mm kidney stone in the proximal right ureter as well as "kavon mesentery" and fatty infiltration of the pancreas Differential Diagnosis (chest pain, altered mental status, abdominal pain women, abdominal pain men, vaginal bleeding, weakness, fever, dyspnea, syncope, headache, dizziness, GI bleed, back pain, seizure, CVA, palpatations, mental health, musculoskeletal)? @Differential diagnosis remains broad however top considerations include: Appendicitis, cholecystitis, diverticulosis, pancreatitis, hepatitis, UTI, gastroenteritis, bowel obstruction, constipation, inflammatory bowel, peptic ulcer disease, this is not meant to be an all-inclusive list EKG interpreted by me (3pts min.). @ -[As above] X-rays interpreted by me (1pt min.). @Personally reviewed x-ray abdomen, I see no evidence of volvulus, obstruction or ureterolithiasis CT interpreted by me (1pt min.). @ -[None done] U/S interpreted by me (1pt. min.). @ -[None done] What testing was considered but not performed or refused? (CT, X-rays, U/S, labs)? Why? @ -[None] What meds were considered but not given or refused? Why? @ -[None] Did you discuss the management of the patient with other professionals (zunilda rodriguez i.e. , PA, [employer], lab, RT, psych nurse, social sciences instructor, auto motor mechanic, teacher, youth officer, family caseworker)? Give summary @ -[No] Was smoking cessation discussed for >3mins.? @ -[No] Was critical care preformed (if so, how long)? @ -[No] Were there social determinants of health that impacted care today? How? (Homelessness, low income, unemployed, alcoholism, drug addiction, transportation, low edu. Level, literacy, decrease access to med. care, halfway, rehab)? @ -[No] Was there de-escalation of care discussed even if they declined (Discuss DNR or withdrawal of care, Hospice)? @ -[No] What co-morbidities impacted this encounter? (DM, HTN, Smoking, COPD, CAD, Cancer, CVA, ARF, Chemo, Hep., AIDS, mental health diagnosis, sleep apnea, morbid obesity)? @ -[None] Was patient admitted / discharged? Hospital course, mention meds given and route, prescriptions, significant lab abnormalities, going to OR and other pertinent info. @ - this is a pleasant 48-year-old gentleman presenting today for right-sided abdominal pain. Vital signs stable on arrival. Abdomen is soft and nontender without CVA tenderness palpation. Will begin with basic labs, urinalysis, IV fluids, pain control, x-ray KUB. Patient agreeable with plan of care Labs show mild leukocytosis white blood cell count 14.29, creatinine 1.31 which is slightly elevated from prior , previously on 05/08/2023 was 1.2, GFR 64, no lactic acidosis, urinalysis is significant for small mount of blood large wit leukocyte esterase, 13 red blood cells 27 white blood cells, 3 squamous cells rare bacteria. Will be sent for culture. Givenhematuria, will obtain CT abdomen pelvis to assess for obstructing kidney stone. On my eassessment patient is currently comfortable. Updated him to findings and plan of care. He is agreeable with plan. Patient signed out to oncoming physician, Dr. Moya pending CT. (Tonie Hall) - Lab Data Lab Results 08/02/24 08/02/24 08/02/24 Range/Units 04:13 04:13 04:13 WBC 14.29 H (4.50-10.00) 10*3/uL RBC 6.29 H (4.40-5.60) 10*6/uL Hgb 16.7 (13.0-17.0) g/dL Hct 51.6 H (39.6-50.0) % MCV 82.0 (80.0-97.0) fL MCH 26.6 L (27.0-32.0) pg MCHC 32.4 (32.0-37.0) g/dL Plt Count 367 (140-440) 10*3/uL MPV 9.9 (9.5-12.2) fL Immature Gran % (Auto) 0.6 % Neutrophils % 87.0 % Lymphocytes % 6.6 % Monocytes % 5.1 % Eosinophils % 0.3 % Basophils % 0.4 % Immature Gran # 0.08 H (0.00-0.04) 10*3/uL Neutrophils # 12.43 H (1.80-7.70) 10*3/uL Lymphocytes # 0.94 (0.90-5.00) 10*3/uL Monocytes # 0.73 (0.20-1.00) 10*3/uL Eosinophils # 0.05 (0.04-0.35) 10*3/uL Basophils # 0.06 (0.00-0.10) 10*3/uL PT (10.0-12.5) sec INR (<1.2) APTT (22.0-30.0) sec Sodium 142 (137-145) mmol/L Potassium 4.5 (3.5-5.1) mmol/L Chloride 103 (98-107) mmol/L Carbon Dioxide 25 (22-30) mmol/L Anion Gap 14 mmol/L BUN 21 H (9-20) mg/dL Creatinine 1.31 H (0.66-1.25) mg/dL Est GFR (CKD-EPI)AfAm 74 (>60 ml/min/1.73 sqM) Est GFR (CKD-EPI)NonAf 64 (>60 ml/min/1.73 sqM) Glucose 118 H (74-99) mg/dL Plasma Lactic Acid [place] (0.7-2.0) mmol/L Calcium 10.2 (8.4-10.2) mg/dL Total Bilirubin 1.1 (0.2-1.3) mg/dL AST 29 (17-59) U/L ALT 38 (4-49) U/L Alkaline Phosphatase 78 (38-126) U/L Total Protein 8.4 H (6.3-8.2) g/dL Albumin 5.0 (3.5-5.0) g/dL Lipase 157 (23-300) U/L Urine Color Yellow Urine Appearance Cloudy (Clear) Urine pH 5.5 (5.0-8.0) Ur Specific [place] 1.033 (1.001-1.035) Urine Protein Trace H (Negative) Urine Glucose (UA) Negative (Negative) Urine Ketones Negative (Negative) Urine Blood Small H (Negative) Urine Nitrite Negative (Negative) Urine Bilirubin Negative (Negative) Urine Urobilinogen <2.0 (<2.0) mg/dL Ur Leukocyte Esterase Large H (Negative) Urine RBC 13 H (0-5) /hpf Urine WBC 27 H (0-5) /hpf Ur Squamous Epith Cells 3 (0-4) /hpf Urine Bacteria Rare H (None) /hpf Urine Mucus Many H (None) /hpf 08/02/24 08/02/24 Range/Units 05:50 06:18 WBC (4.50-10.00) 10*3/uL RBC (4.40-5.60) 10*6/uL Hgb (13.0-17.0) g/dL Hct (39.6-50.0) % MCV (80.0-97.0) fL MCH (27.0-32.0) pg MCHC (32.0-37.0) g/dL Plt Count (140-440) 10*3/uL MPV (9.5-12.2) fL Immature Gran % (Auto) % Neutrophils % % Lymphocytes % % Monocytes % % Eosinophils % % Basophils % % Immature Gran # (0.00-0.04) 10*3/uL Neutrophils # (1.80-7.70) 10*3/uL Lymphocytes # (0.90-5.00) 10*3/uL Monocytes # (0.20-1.00) 10*3/uL Eosinophils # (0.04-0.35) 10*3/uL Basophils # (0.00-0.10) 10*3/uL PT 10.8 (10.0-12.5) sec INR 1.0 (<1.2) APTT 22.6 (22.0-30.0) sec Sodium (137-145) mmol/L Potassium (3.5-5.1) mmol/L Chloride (98-107) mmol/L Carbon Dioxide (22-30) mmol/L Anion Gap mmol/L BUN (9-20) mg/dL Creatinine (0.66-1.25) mg/dL Est GFR (CKD-EPI)AfAm (>60 ml/min/1.73 sqM) Est GFR (CKD-EPI)NonAf (>60 ml/min/1.73 sqM) Glucose (74-99) mg/dL Plasma Lactic Acid [place] 1.7 (0.7-2.0) mmol/L Calcium (8.4-10.2) mg/dL Total Bilirubin (0.2-1.3) mg/dL AST (17-59) U/L ALT (4-49) U/L Alkaline Phosphatase (38-126) U/L Total Protein (6.3-8.2) g/dL Albumin (3.5-5.0) g/dL Lipase (23-300) U/L Urine Color Urine Appearance (Clear) Urine pH (5.0-8.0) Ur Specific [place] (1.001-1.035) Urine Protein (Negative) Urine Glucose (UA) (Negative) Urine Ketones (Negative) Urine Blood (Negative) Urine Nitrite (Negative) Urine Bilirubin (Negative) Urine Urobilinogen (<2.0) mg/dL Ur Leukocyte Esterase (Negative) Urine RBC (0-5) /hpf Urine WBC (0-5) /hpf Ur Squamous Epith Cells (0-4) /hpf Urine Bacteria (None) /hpf Urine Mucus (None) /hpf Disposition Is patient prescribed a controlled substance at d/c from ED?: No Time of Disposition: 08:04 <Darius Mcdermott - Last Filed: 08/02/24 08:03> <Tonie Hall - Last Filed: 08/02/24 19:00> Clinical Impression: Kidney stone Disposition: HOME SELF-CARE Condition: Good Instructions (If sedation given, give patient instructions): Kidney Stones (ED) Additional Instructions: follow up with Urologist Referrals: David Cowan MD [Primary Care Provider] - 1-2 days
[2024-08-02 05:51] LABS: Basophils # (A) 0.06 10*3/uL (0.00-0.10); Basophils % (A) 0.4 %; Eosinophils # (A) 0.05 10*3/uL (0.04-0.35); Eosinophils % (A) 0.3 %; HCT 51.6 % (39.6-50.0); HGB 16.7 g/dL (13.0-17.0); Lymphocytes # (A) 0.94 10*3/uL (0.90-5.00); Lymphocytes % (A) 6.6 %; MCH 26.6 pg (27.0-32.0); MCHC 32.4 g/dL (32.0-37.0); Mean Platelet Volume 9.9 fL (9.5-12.2); Monocytes # (A) 0.73 10*3/uL (0.20-1.00); Monocytes % (A) 5.1 %; Neutrophils # (A) 12.43 10*3/uL (1.80-7.70); Platelet Count 367 10*3/uL (140-440); RBC 6.29 10*6/uL (4.40-5.60); RDW 13.9 % (11.5-14.5); WBC 14.29 10*3/uL (4.50-10.00)
[2024-08-02 06:02] LABS: ALT 38 U/L (4-49); AST 29 U/L (17-59); African American GFR (CKD) 74 (>60 ml/min/1.73 sqM); Alkaline Phosphatase 78 U/L (38-126); Anion Gap 14 mmol/L; Blood Urea Nitrogen 21 mg/dL (9-20); Calcium 10.2 mg/dL (8.4-10.2); Carbon Dioxide 25 mmol/L (22-30); Chloride 103 mmol/L (98-107); Glucose 118 mg/dL (74-99); Lipase 157 U/L (23-300); Non-African American GFR(CKD) 64 (>60 ml/min/1.73 sqM); Potassium 4.5 mmol/L (3.5-5.1); Sodium 142 mmol/L (137-145); Total Bilirubin 1.1 mg/dL (0.2-1.3); Total Protein 8.4 g/dL (6.3-8.2)
[2024-08-02] MEDS: KETOROLAC 15 MG/ML 1 ML VIAL IVP STA (06:06)
[2024-08-02] MEDS: diphenhydrAMINE 50 MG/ML 1 ML VIAL IVP STA (06:08)
[2024-08-02] MEDS: METOCLOPRAMIDE 5 MG/ML 2 ML VIAL IVP STA (06:09)
[2024-08-02] MEDS: SODIUM CHLORIDE 0.9% 1,000 ML IV ONE (06:10)
[2024-08-02 06:34] LABS: Appearance,Urine Cloudy (Clear); Bacteria,Urine Rare /hpf; Bilirubin,Urine Negative (Negative); Blood,Urine Small (Negative); Color,Urine Yellow; Glucose,Urine (UA) Negative (Negative); Ketones,Urine Negative (Negative); Leukocyte Esterase,Urine Large (Negative); Mucus,Urine Many /hpf; Nitrite,Urine Negative (Negative); PH, Urine 5.5 (5.0-8.0); Protein,Urine Trace (Negative); RBC,Urine 13 /hpf (0-5); Specific Gravity,Urine 1.033 (1.001-1.035); Squamous Epithelial Cell,Urine 3 /hpf (0-4); Urobilinogen,Urine <2.0 mg/dL (<2.0); WBC,Urine 27 /hpf (0-5)
[2024-08-02 06:42] LABS: Partial Thromboplastin Time 22.6 sec (22.0-30.0); Prothrombin Time 10.8 sec (10.0-12.5)
--- NOTE | 2024-08-02 06:43 | XR ---
KUB. CLINICAL INDICATION: Male, 48 years old with history of abdominal pain, Abdominal pain. COMPARISON: 02/10/2023 TECHNIQUE: 2 upright views of the abdomen were obtained. FINDINGS: The lung bases are clear. There is no free intraperitoneal air beneath the diaphragm. The bowel gas pattern is nonspecific and there is no evidence of obstruction. No suspicious abdominal or pelvic calcifications are seen. The osseous structures are intact. IMPRESSION: Nonspecific abdomen without evidence of free air or obstruction. [facility], , 08/02/2024 6:41 AM
--- NOTE | 2024-08-02 07:55 | CT ---
EXAMINATION TYPE: CT abdomen pelvis wo con DATE OF EXAM: 08/02/2024 COMPARISON: 02/10/2023 CLINICAL INDICATION: Male, 48 years old with history of right flank pain, hematuria; PHH, Rt side fla nk pain, hematuria. Hx of renal stones. TECHNIQUE: CT scan of the abdomen and pelvis is performed without oral or IV contrast. CT DLP: 1885.[address] CTDI: mGy Automated exposure control for dose reduction was used. FINDINGS: Within the limitations of a non-contrast study, the following observations are made. The lungs are clear. Gallbladder is normal and there is no gallstone, wall thickening, pericholecystic fluid or distention . There is no biliary ductal dilatation. There is no organomegaly of the liver, pancreas, spleen or adrenal glands. There is mild right hydronephrosis secondary to 2 calculi in the distal right ureter proximal to the UVJ. The largest calcification is 7.3 mm. There are no left renal calcifications or left-sided hydron ephrosis. The caliber of the abdominal aorta is normal and there is no retroperitoneal adenopathy or hemorrhage . The bowel loops are normal in caliber is no evidence of obstruction. No inflammatory changes are iden tified in the mesentery and there is no free intraperitoneal air or fluid. There is no pelvic mass, free fluid, abscess or adenopathy. The osseous structures and soft tissues are unremarkable. IMPRESSION: Mild right hydronephrosis secondary due to obstructing calcifications in the distal right ureter as d escribed above. [facility], , 08/02/2024 7:53 AM
[2024-08-02 08:45] VITALS: BP 128/78; PULSE 78; RESP 16; TEMP 98
== END 2024-08-02 08:44 | disposition home or self-care (01) ==
LOC: EC 03:34
DX: N13.2 Hydronephrosis with renal and ureteral calculous obstruction (principal); Z91.041 Radiographic dye allergy status; Z88.0 Allergy status to penicillin
CPT/HCPCS: 36415; 80053; 83605; 83690; 85025; 85610; 85730; 81001; 87086; 74018; 74176; 99285; 96374; 96375 ×2; 96361; J1200; J2765; J1885